=== PATIENT | female | born 1960 ===

== ENCOUNTER → 2023-08-06 15:00 | Outpatient (REF) | payer OTHER, SELFPAY | LOC: RAD 15:00 | PROVIDERS: ATTENDING PHYSICIAN Family Medicine | DX: M25.50 Pain in unspecified joint (principal); M25.531 Pain in right wrist; M25.532 Pain in left wrist; M25.561 Pain in right knee; M25.562 Pain in left knee; M25.571 Pain in right ankle and joints of right foot; M25.572 Pain in left ankle and joints of left foot; M79.642 Pain in left hand | CPT/HCPCS: 73110; 73130; 73560; 73565; 73600 ==

== ENCOUNTER 2023-12-02 07:36 | Inpatient (IN) | payer OTHER, SELFPAY ==
--- NOTE | 2023-10-30 13:12 | CM ---
Patient is scheduled for an elective L TKR on 12/02/23. Spoke with patient prior to surgery via telephone. Introduced role of Orthopedic Navigator. Patient reports that she lives alone in a one floor apartment. There are eight (two sets of four)
steps to enter. She currently functions independently. She has no DME but plans to borrow a cane and rolling walker. She has never had VN services. PCP is Eri Pavon.
Discussed orthopedic program and post surgical plans. Reviewed anticipated length of stay and that goal is for her to return home at discharge. Also reviewed outpatient PT. Patient is in agreement with tentative plan and will go directly to
outpatient PT at [facility]. She will be staying with her mother for a few days after surgery. Her mother's home is a split level with no steps to enter. She will have a first floor set up there.
Patient will complete online education.
Plan: Orthopedic Navigator will remain available to assist with the care of patient and will reassess discharge needs after surgery.
[2023-11-07 09:28] VITALS: BMI 21.3
[2023-11-07 09:55] LABS: Hematocrit 38.3 % (37.0-47.0); Hemoglobin 12.6 g/dL (12.0-16.0); Mean Corp Hgb Conc. 32.9 g/dL (33.0-37.0); Mean Corpuscular Hgb 32.2 pg (27.0-31.0); Mean Platelet Volume 9.3 fL (7.4-10.4); Platelet Count 297 10^3/uL (130-400); Red Blood Cell Count 3.91 10^6/uL (4.20-5.40); Red Cell Dist. Width 12.4 % (11.5-14.5); White Blood Cell Count 6.7 10^3/uL (4.8-10.8)
[2023-11-07 10:28] LABS: ALT (SGPT) 13 U/L (0-35); AST (SGOT) 23 U/L (14-36); Albumin 4.3 g/dl (3.5-5.0); Alkaline Phosphatase 62 U/L (38-126); Blood Urea Nitrogen 14 mg/dl (7-17); Calcium 9.8 mg/dl (8.4-10.2); Carbon Dioxide 27 mmol/L (22-30); Chloride 104 mmol/L (98-107); Estimated Creatinine Clearance 49 ml/min; Glucose 95 mg/dl (70-99); Potassium 4.4 mmol/L (3.5-5.1); Sodium 140 mmol/L (135-145); Total Bilirubin 0.3 mg/dl (0.2-1.3); Total Protein 7.1 g/dl (6.3-8.2); eGFR > 60.00
[2023-11-07 11:17] LABS: Glycohemoglobin (HgbA1c) 5.7 % (4.0-5.6)
[2023-11-28 10:41] VITALS: BMI 21.3
[2023-12-02] VITALS (15 sets, daily range): BP systolic 93–119; BP diastolic 54–69; PULSE 74; O2SAT 98
[2023-12-02] MEDS: NORMOSOL-R 1000 IV ×2 (07:45→14:22)
[2023-12-02] MEDS: TYLENOL 650 MG PO ×4 (08:01→23:15)
[2023-12-02] MEDS: CELEBREX 200 MG PO (08:02)
[2023-12-02] MEDS: SUBLIMAZE 25 MCG IV ×2 (13:20→13:54)
--- NOTE | 2023-12-02 14:11 | W.PN.UPDATE ---
Update Note
Progress Note Update
On SL Ketomine at hs--will monitor pain and address this with patient re chronic pain and who manages this OP
--- NOTE | 2023-12-02 14:18 | W.DS.TRANS ---
DC Summary - Oral And Maxillofacial Surgery Resident
-
Discharge Instructions:
Sleep Apnea Risk Low
Discharge Diagnosis/Procedures L THERESA Dorado 12/02/23
Diet As tolerated
Activity With Walker
Driving Restrictions No driving
Bathing Restrictions OK to Shower
Instructions:
Stand-Alone Forms:
Changes to Home Medications: Yes
Discharge Medications:
DC Medications w/original date entered in [facility]
cholecalciferol (vitamin D3) 25 mcg (1,000 unit) tablet (Vitamin D3) 25 mcg PO DAILY 11/27/23
clonidine HCl 0.1 mg tablet 0.1 mg PO TID 11/27/23
desvenlafaxine succinate 100 mg tablet,extended release 24 hr (Pristiq) 100 mg PO DAILY 11/27/23
ketamine 100 mg sublingual suzy 100 mg sublingual HS 11/27/23
levothyroxine 50 mcg tablet 50 mcg PO DAILY 11/27/23
magnesium 200 mg tablet 400 mg PO DAILY 11/27/23
mecobalamin (vitamin B12) 1,000 mcg chewable tablet (B12 Active) 2,000 mcg PO DAILY 11/27/23
trazodone 100 mg tablet 100 mg PO HS 11/27/23
acetaminophen 325 mg capsule (Tylenol) 650 mg (2 x 325 mg) PO QID #2 caps 12/02/23
aspirin 325 mg tablet 325 mg PO DAILY blood clot prevention #1 tab 12/02/23
celecoxib 200 mg capsule 100 mg (1/2 x 200 mg) PO BID anti-inflammatory #30 caps 12/02/23
dexamethasone 4 mg tablet 4 mg PO BID inflammation #6 tabs 12/02/23
docusate sodium 100 mg capsule (Colace) 100 mg PO BID stool softner #1 cap 12/02/23
magnesium hydroxide 400 mg/5 mL oral suspension (Milk of Magnesia) 30 ml PO HS PRN Constipation #1 mL 12/02/23
mupirocin 2 % topical ointment topical BID 12/02/23
ondansetron 4 mg disintegrating tablet 4 mg PO Q6H PRN n/v #20 tabs 12/02/23
oxycodone 5 mg tablet 5 mg PO Q6H PRN 1 tab moderate pain, 2 tabs severe pain #30 tabs 12/02/23
sennosides 8.6 mg tablet (Senokot) 17.2 mg (2 x 8.6 mg) PO BID laxative #2 tabs 12/02/23
Home Medication Changes
celecoxib 200 mg capsule 100 mg (1/2 x 200 mg) PO BID anti-inflammatory #30 caps 12/02/23�
dexamethasone 4 mg tablet 4 mg PO BID inflammation #6 tabs 12/02/23�
mupirocin 2 % topical ointment topical BID 12/02/23�
ondansetron 4 mg disintegrating tablet 4 mg PO Q6H PRN n/v #20 tabs 12/02/23�
oxycodone 5 mg tablet 5 mg PO Q6H PRN 1 tab moderate pain, 2 tabs severe pain #30 tabs 12/02/23�
Pending Results: No
[2023-12-02] MEDS: ROXICODONE 5 MG PO (14:28)
--- NOTE | 2023-12-02 15:36 | PTCARENOTE ---
Patient admitted from PACU post removal of hardware with left knee replacement.The patient is alert and oriented.She rates her pain at a 6 out of 10.Neurovascular assessment is within normal limits and ongoing.The Aquacell dressing is intact with an
alejandro wrap.There is no drainage present.The patient is in her bed with the call bynum.Her mother is with her.Physical therapy will also be seeing her shortly.
[2023-12-02] MEDS: PRISTIQ 100 MG PO (16:21)
[2023-12-02] MEDS: CATAPRES 0.1 MG PO ×2 (16:22→22:34)
[2023-12-02] MEDS: SYNTHROID 50 MCG PO (16:27)
[2023-12-02] MEDS: ASPIRIN 325 MG PO (17:40)
[2023-12-02] MEDS: ANCEF 5 IV (17:40)
[2023-12-02] MEDS: BACTROBAN 2% OINTMENT 1 APPLIC NASAL (20:50)
[2023-12-02] MEDS: COLACE 100 MG PO (20:51)
[2023-12-02] MEDS: SENOKOT 17.2 MG PO (20:51)
[2023-12-02] MEDS: DECADRON 4 MG PO (20:51)
[2023-12-02] MEDS: TORADOL 15 MG IV (20:52)
[2023-12-02] MEDS: DESYREL 100 MG PO (22:34)
[2023-12-02] MEDS: ROXICODONE 10 MG PO (22:45)
[2023-12-03] MEDS: ANCEF 5 IV (00:02)
[2023-12-03 03:29] VITALS: BP 119/62
[2023-12-03] MEDS: TYLENOL 650 MG PO ×2 (04:40→08:08)
[2023-12-03] MEDS: SYNTHROID 50 MCG PO (05:28)
[2023-12-03 07:23] VITALS: BP 122/67
[2023-12-03] MEDS: ROXICODONE 5 MG PO (08:04)
[2023-12-03] MEDS: BACTROBAN 2% OINTMENT 1 APPLIC NASAL (08:05)
[2023-12-03] MEDS: CELEBREX 200 MG PO (08:07)
[2023-12-03] MEDS: SENOKOT 17.2 MG PO (08:07)
[2023-12-03] MEDS: COLACE 100 MG PO (08:07)
[2023-12-03] MEDS: PRISTIQ 100 MG PO (08:07)
[2023-12-03] MEDS: ASPIRIN 325 MG PO (08:07)
[2023-12-03] MEDS: CATAPRES 0.1 MG PO (08:07)
[2023-12-03] MEDS: DECADRON 4 MG PO (08:07)
[2023-12-03] MEDS: TORADOL 15 MG IV (08:08)
--- NOTE | 2023-12-03 08:40 | CM ---
Addendum entered by Maura Levy 12/03/23 10:58:
Patient did well in therapy/ She has no concerns about going home and has updated her mother.
Original Note:
Reviewed chart and held rounds with PT, OT and nursing. Patient admitted as planned for elective L TKR. Met with patient at bedside. Confirmed information previously obtained for assessment. Also discussed discharge plans. The plan is for patient to
return home at discharge. She will be going to her mother's house at discharge. Patient will go directly to outpatient PT and will come to [facility]. She has an appointment scheduled for Saturday, 12/03.
Patient has a rolling walker and cane.
She will use [facility] pharmacy if additional discharge prescriptions are needed.
[2023-12-03 09:00] VITALS: BP 123/100; PULSE 98; O2SAT 97
--- NOTE | 2023-12-03 10:23 | W.PN.ORTHO ---
Today's Communication / Plan
-
d/c
Assessment
.
Distal Motor Intact: Yes
Dressing:
Clean, dry and intact.
Assessment:
Chronic pain-controlled on current regimen
Plan
.
Surgery / Date: Wilbert Matthews 12/02/23
DVT Prophylaxis: Aspirin
Activity:
Out of bed.
PT/OT
Discharge Plan: Home w/ Outpatient PT
Subjective
.
.:
Patient resting comfortably.
Vital Signs and Labs
.
Vital Signs and Labs:
Lab Results
11/07/23 09:20
11/07/23 09:20
Temp Pulse Resp BP Pulse Ox
98 F 79 17 122/67 97
12/03/23 07:23 12/03/23 07:23 12/03/23 07:23 12/03/23 07:23 12/03/23 07:23
Non-invasive Hgb result: 10.6
Physical Exam
-
HEENT: No pallor, cyanosis, or jaundice. Throat clear.
NECK: Supple. No JVD.
RESPIRATORY: Lungs clear to auscultation.
CVS: S1, S2 normal. RRR.� No murmur, rub or gallop.
ABDOMEN: Soft, non-tender. No distension. BS+/normal.
EXTREMITIES: strength equal, no calf pain with palpation
LINER INSTALLER: AOx3. No focal deficits. delivery crew worker grossly intact
[2023-12-03 10:36] VITALS: BP 101/65; PULSE 82; O2SAT 99
[2023-12-03 11:03] VITALS: BP 127/69
== END 2023-12-03 11:48 | disposition home or self-care (01) | DRG 470 ==
LOC: 2 SOUTH 07:36
PROVIDERS: ADMITTING PHYSICIAN Specialist; FAMILY PHYSICIAN Family Medicine
PROC: 0QPC04Z Removal of Internal Fixation Device from Left Lower Femur, Open Approach (ICD-10-PCS; 2023-12-02)
PROC: 0SRD0J9 Replacement of Left Knee Joint with Synthetic Substitute, Cemented, Open Approach (ICD-10-PCS; 2023-12-02)
DX: M17.12 Unilateral primary osteoarthritis, left knee (principal); A69.20 Lyme disease, unspecified; F32.A Depression, unspecified; F41.1 Generalized anxiety disorder; M79.7 Fibromyalgia; G89.29 Other chronic pain; F17.290 Nicotine dependence, other tobacco product, uncomplicated; R26.2 Difficulty in walking, not elsewhere classified; S72.92XS Unspecified fracture of left femur, sequela; V89.2XXS Person injured in unspecified motor-vehicle accident, traffic, sequela; Z79.890 Hormone replacement therapy; Z79.899 Other long term (current) drug therapy; Z85.3 Personal history of malignant neoplasm of breast; Z90.12 Acquired absence of left breast and nipple; Z82.49 Family history of ischemic heart disease and other diseases of the circulatory system
CPT/HCPCS: 36415; 73560; 80053; 83036; 85027; 86850; 86900; 86901; 87070; 93005; 97110; 97116; 97162; 97165; C1713; C1762; C1776

== ENCOUNTER 2023-12-17 11:25 | Outpatient (RCR) | payer OTHER, SELFPAY | END 2023-12-17 23:59 | disposition home or self-care (01) | LOC: RPT 11:25 | PROVIDERS: ATTENDING PHYSICIAN Specialist; FAMILY PHYSICIAN Family Medicine | DX: R26.89 Other abnormalities of gait and mobility (principal); Z96.652 Presence of left artificial knee joint; Z73.6 Limitation of activities due to disability | CPT/HCPCS: 97010; 97110; 97162 ==

== ENCOUNTER 2023-12-31 09:01 | Outpatient (RCR) | payer OTHER, SELFPAY | END 2023-12-31 23:59 | disposition home or self-care (01) | LOC: RPT 09:01 | PROVIDERS: ATTENDING PHYSICIAN Specialist; FAMILY PHYSICIAN Family Medicine | DX: Z47.1 Aftercare following joint replacement surgery (principal); Z96.652 Presence of left artificial knee joint; R26.89 Other abnormalities of gait and mobility; Z73.6 Limitation of activities due to disability | CPT/HCPCS: 97010; 97110 ==

== ENCOUNTER 2024-03-12 16:18 | Emergency (ER) | payer OTHER, SELFPAY ==
--- NOTE | 2024-03-12 16:30 | ED.GENMED ---
History of Present Illness
<Jo Ann Saeed PA-C - Last Filed: 03/14/24 07:01>
General
Chief Complaint: Chest Pain
Source: patient
Time Seen by Provider: 03/12/24 16:27
History of Present Illness
History of Present Illness:
63yoF with a history of depression, fibromyalgia, hypothyroidism, and remote history of breast/uterine cancer currently in remission presenting for evaluation of back pain. Patient reports ongoing shortness of breath for several weeks. She woke up
this morning with pain in her left neck and upper back. Pain is worse with breathing and movement. She took Tylenol earlier today without much improvement. She denies any trauma or heavy lifting. She has had pain from fibromyalgia in the past that
has felt similar but has not had a pain like this in several years. She was seen by her PCP today and was told to go to the ED for evaluation. Patient denies any chest pain, nausea, vomiting, diaphoresis, paresthesias, abdominal pain.
Phy Exam
<Jo Ann Saeed PA-C - Last Filed: 03/14/24 07:01>
General Physical Exam
General Presentation: well appearing and no apparent distress
General age: appears stated age
General Skin: warm and dry
General Habitus: normal
General Mental: alert
ENT Exam
ENT Exam: normocephalic
Cardiovascular Exam
Cardiovascular Exam: regular rate/rhythm, no murmur and normal peripheral pulses (2+ radial and DP pulses bilaterally)
Pulmonary Exam
Pulmonary Exam: lungs clear, no respiratory distress, no rales, no crackles and no rhonchi
Gastrointestinal Exam
Gastrointestinal Exam: non tender, soft and non distended
[place] Coma Scale
Eye Opening: Spontaneous
Verbal Response: Oriented
Motor Response: Obeys Commands
GCS Total Score: 15
Musculoskeletal Exam
Musculoskeletal Exam: other (+Reproducible tenderness to cervical portion of L trapezius muscle and thoracic spine. No skin changes.)
Skin Exam
Skin Exam: normal color and warm/dry
Psychiatric Exam
Psychiatric Exam: normal mood/affect
<Keegan Valadez, - Last Filed: 03/12/24 19:50>
[place] Coma Scale
GCS Total Score: 15
Scores
<Jo Ann Saeed PA-C - Last Filed: 03/14/24 07:01>
Heart Score for Chest Pain Patients
Heart Score for Chest Pain Patients: 1
Heart Score Risk: 2.5% MACE over next 6 weeks
<Keegan Valadez, DO - Last Filed: 03/12/24 19:50>
Heart Score for Chest Pain Patients
STEMI patient?: No
History: Slightly or Non-Suspicious
ECG: Normal
Age: >45 - <65 years
Risk Factors: No Risk Factors
Troponin: </= Normal Limit
Heart Score for Chest Pain Patients: 1
Heart Score Risk: 2.5% MACE over next 6 weeks
Course
<Jo Ann Saeed PA-C - Last Filed: 03/14/24 07:01>
Orders/Labs/Results
Orders:
Orders
03/12/24 16:19
Electrocardiogram (*1) Urgent
Reason for Study: Chest Pain
EKG- Treatment ONCE
03/12/24 16:41
Ketorolac [Toradol] 15 mg IV NOW STA
CR Chest - 2 Views Urgent
Comment:
Reason For Exam: Upper back pain, SOB
03/12/24 16:43
Complete Blood Count/With Diff Urgent
Comprehensive Metabolic Panel Urgent
Troponin I Urgent
03/12/24 17:10
D-Dimer Urgent
03/12/24 17:37
CT Chest Pe Study Urgent
Comment:
Reason For Exam: SOB, elevated D-dimer
Abnormal Lab Results
03/12/24 03/12/24
16:43 17:10
RBC 3.67 L 10^6/uL
(4.20-5.40)
Hgb 11.4 L g/dL
(12.0-16.0)
Hct 33.6 L %
(37.0-47.0)
MCH 31.1 H pg
(27.0-31.0)
D-Dimer 1.10 H ug/mlFEU
(0.00-0.50)
03/12/24 16:43
03/12/24 16:43
Vital Signs
Initial and Last Documented VS:
Initial Vital Signs
Temp Pulse Resp Pulse Ox
97.9 F 85 18 100
03/12/24 16:23 03/12/24 16:23 03/12/24 16:23 03/12/24 16:23
Last Documented Vital Signs
Temp Pulse Resp BP Pulse Ox
97.9 F 83 18 109/56 100
03/12/24 16:23 03/12/24 18:01 03/12/24 18:01 03/12/24 19:00 03/12/24 19:00
[place];Keegan Valadez, DO - Last Filed: 03/12/24 19:50>
Orders/Labs/Results
Orders:
Orders
03/12/24 16:19
Electrocardiogram (*1) Urgent
Reason for Study: Chest Pain
EKG- Treatment ONCE
03/12/24 16:41
Ketorolac [Toradol] 15 mg IV NOW STA
CR Chest - 2 Views Urgent
Comment:
Reason For Exam: Upper back pain, SOB
03/12/24 16:43
Complete Blood Count/With Diff Urgent
Comprehensive Metabolic Panel Urgent
Troponin I Urgent
03/12/24 17:10
D-Dimer Urgent
03/12/24 17:37
CT Chest Pe Study Urgent
Comment:
Reason For Exam: SOB, elevated D-dimer
Abnormal Lab Results
03/12/24 03/12/24
16:43 17:10
RBC 3.67 L 10^6/uL
(4.20-5.40)
Hgb 11.4 L g/dL
(12.0-16.0)
Hct 33.6 L %
(37.0-47.0)
MCH 31.1 H pg
(27.0-31.0)
D-Dimer 1.10 H ug/mlFEU
(0.00-0.50)
03/12/24 16:43
03/12/24 16:43
Vital Signs
Initial and Last Documented VS:
Initial Vital Signs
Temp Pulse Resp Pulse Ox
97.9 F 85 18 100
03/12/24 16:23 03/12/24 16:23 03/12/24 16:23 03/12/24 16:23
Last Documented Vital Signs
Temp Pulse Resp BP Pulse Ox
97.9 F 83 18 109/56 100
03/12/24 16:23 03/12/24 18:01 03/12/24 18:01 03/12/24 19:00 03/12/24 19:00
<Jo Ann Saeed PA-C - Last Filed: 03/14/24 07:01>
MDM/Problems Addressed
Differential Diagnosis Includes:
63yoF here with L sided neck and upper back pain that she woke up with this morning. Worse with breathing. Sent here by PCP. VSS. Oxygen saturation 100%. There is reproducible muscular tenderness on exam. Differential diagnosis includes but is not
limited to: musculoskeletal, pneumonia, PE, doubt ACS
Initial ED plan: Check cardiac labs, D-dimer, EKG, and CXR. IV Toradol for pain.
<Jo Ann Saeed PA-C - Last Filed: 03/14/24 07:01>
*EKG
Interpreted by ED Provider?: Yes
EKG Intrepretation Date: 03/12/24
Heart Rate: 74
Rate: normal
Rhythm: sinus
Dagmar: normal axis
Interval: normal interval
QRS Pattern: normal QRS
Ischemia: no ischemia
<Keegan Valadez, - Last Filed: 03/12/24 19:50>
*Radiology
Radiology exam reviewed: radiology read reviewed (CT chest shows possible bronchiolitis, no PE)
*Pulse Oximetry
Patient hypoxic: no
*Vat Washer Interpretation
Rate: normal
Interpretation: normal
Heart Rate: 75
Rhythm: sinus
*Critical Care Note
Total Time (30-74mins, 75-104mins- exclusive of procedures): Not Applicable
<Keegan Valadez DO - Last Filed: 03/12/24 19:50>
Patient Management
Social determinants of health affecting care: Living situation
Escalation/DeEscalation of care consider admission/obs:
admit not indicated
<Jo Ann Saeed PA-C - Last Filed: 03/14/24 07:01>
Update Note
Update Note:
EKG shows NSR without ischemic changes and troponin WNL. D-dimer elevated and CTA chest subsequently ordered. Patient signed out to Dr. Valadez pending CT results. Clinically, suspect musculoskeletal cause of pain.
ED Attending Note
<Jo Ann Saeed PA-C - Last Filed: 03/14/24 07:01>
-
Portions of this chart may have been created with voice recognition software.� Occasional wrong word or��sound alike� substitutions may have occurred due to the inherent limitations of voice recognition software.
<Keegan Valadez DO - Last Filed: 03/12/24 19:50>
ED Attending Note
Patient seen and examined by attending physician: Yes
ED Attending Note:
I have reviewed and agree with history and treatment plan by Jo Ann Saeed. My exam revealed 63-year-old female in no acute distress, ambulating without difficulty. CT chest and troponin negative. Do not suspect ACS or PE. Patient stable for
discharge.
Discharge Plan
Departure
Patient Disposition: Home (Routine Discharge)
Date of Disposition: 03/12/24
Time of Disposition: 19:48
Patient with high blood pressure during this ER visit?: No
Condition: Good
Discharge Problem:
Chest pain
Instructions: Chest Pain PCP Follow Up
Prescriptions:
No Action
clonidine HCl 0.1 mg Tablet
0.1 mg PO TID
trazodone 100 mg Tablet
100 mg PO HS
levothyroxine 50 mcg Tablet
50 mcg PO DAILY
magnesium 200 mg Tablet
400 mg PO DAILY
cholecalciferol (vitamin D3) [Vitamin D3] 25 mcg (1,000 unit) Tablet
25 mcg PO DAILY
desvenlafaxine succinate [Pristiq] 100 mg Tablet Extended Release 24 Hr
100 mg PO DAILY
mecobalamin (vitamin B12) [B12 Active] 1,000 mcg Tablet,Chewable
2,000 mcg PO DAILY
ketamine 100 mg Emilia
100 mg SUBLINGUAL HS
mupirocin 2 % Ointment
TOPICAL BID
Patient Comments:
Patient started this medication administration on 10/30/23 in the morning.
celecoxib 200 mg capsule
100 mg PO BID Qty: 30 0RF
Rx Instructions:
*take with food
*space out 2 hours from aspirin
sennosides [Senokot] 8.6 mg tablet
17.2 mg PO BID Qty: 2 0RF
aspirin 325 mg tablet
325 mg PO DAILY Qty: 1 0RF
Rx Instructions:
Take with food
magnesium hydroxide [Milk of Magnesia] 400 mg/5 mL suspension
30 ml PO HS PRN (Reason: Constipation) Qty: 1 0RF
dexamethasone 4 mg tablet
4 mg PO BID Qty: 6 0RF
Rx Instructions:
take with food
post-op use only
docusate sodium [Colace] 100 mg capsule
100 mg PO BID Qty: 1 0RF
ondansetron [ondansetron] 4 mg tablet,disintegrating
4 mg PO Q6H PRN (Reason: n/v) Qty: 20 0RF
Rx Instructions:
take 1/2h b/f pain med if recurrent nausea
allow to dissolve in mouth w/o water
acetaminophen [Tylenol] 325 mg capsule
650 mg PO QID Qty: 2 0RF
oxycodone 5 mg tablet
5 mg PO Q6H PRN (Reason: 1 tab moderate pain, 2 tabs severe pain) Qty: 30 0RF
Rx Instructions:
Ongoing therapy
Referrals:
Eri Pavon DO [Family Provider] -
Interventions
Interventions:
*Risk Screen - Suicide Last Done: 03/12/24 16:24
*General Assessment Last Done: 03/12/24 16:24
*Neglect/Abuse Screening Last Done: 03/12/24 16:24
ED- Fall Risk Assessment Last Done: 03/12/24 20:03
*ED COVID-19 Vaccine History Last Done: 03/12/24 16:24
*Nursing Disposition Last Done: 03/12/24 20:03
ED- Cardiac Assessment Last Done: 03/12/24 17:18
Discharge Date and Time
Discharge Date/Time: 03/12/24 20:04
Print Language: PUERTO RICAN
[2024-03-12 16:50] LABS: % Basophils 0.6 % (0-2); % Eosinophils 1.2 % (0-6); % Immature Granulocytes 0.4 % (0-0.5); % Monocytes 5.8 % (1.7-9.3); Absolute Eosinophils 0.1 10^3/uL (0-0.7); Absolute Lymphocytes 1.3 10^3/uL (1.2-3.4); Absolute Monocytes 0.3 10^3/uL (0.1-0.6); Absolute Neutrophils 3.5 10^3/uL (1.4-6.5); Hematocrit 33.6 % (37.0-47.0); Hemoglobin 11.4 g/dL (12.0-16.0); Mean Corp Hgb Conc. 33.9 g/dL (33.0-37.0); Mean Corpuscular Hgb 31.1 pg (27.0-31.0); Mean Corpuscular Volume 91.6 fL (81.0-99.0); Mean Platelet Volume 9.1 fL (7.4-10.4); Nucleated Red Blood Cells % 0 %; Platelet Count 293 10^3/uL (130-400); Red Blood Cell Count 3.67 10^6/uL (4.20-5.40); Red Cell Dist. Width 12.9 % (11.5-14.5); White Blood Cell Count 5.2 10^3/uL (4.8-10.8)
[2024-03-12] MEDS: TORADOL 15 MG IV (16:50)
[2024-03-12 17:00] VITALS: BP 119/76
[2024-03-12 17:09] VITALS: BP 122/77
[2024-03-12 17:17] LABS: Troponin I < 0.012 ng/ml
[2024-03-12 17:32] LABS: ALT (SGPT) 13 U/L (0-35); AST (SGOT) 23 U/L (14-36); Albumin 4.1 g/dl (3.5-5.0); Alkaline Phosphatase 73 U/L (38-126); Blood Urea Nitrogen 17 mg/dl (7-17); Calcium 9.6 mg/dl (8.4-10.2); Carbon Dioxide 28 mmol/L (22-30); Chloride 103 mmol/L (98-107); Glucose 87 mg/dl (70-99); Potassium 4.2 mmol/L (3.5-5.1); Sodium 142 mmol/L (135-145); Total Bilirubin 0.2 mg/dl (0.2-1.3); Total Protein 6.7 g/dl (6.3-8.2); eGFR > 60.00
[2024-03-12 17:52] VITALS: BP 129/73
[2024-03-12 18:00] VITALS: BP 114/103
[2024-03-12 18:36] VITALS: BP 97/70
[2024-03-12 19:00] VITALS: BP 109/56
== END 2024-03-12 20:04 | disposition home or self-care (01) ==
LOC: EMR 16:18
PROVIDERS: Physician Assistant; EMERGENCY PHYSICIAN Emergency Medicine; FAMILY PHYSICIAN Family Medicine
DX: R07.89 Other chest pain (principal); F32.A Depression, unspecified; M79.7 Fibromyalgia; E03.9 Hypothyroidism, unspecified; Z85.42 Personal history of malignant neoplasm of other parts of uterus
CPT/HCPCS: 99284; 96374; 71046; 71275; 80053; 84484; 85025; 85379; 93005; Q9967

== ENCOUNTER 2024-03-31 14:38 | Emergency (ER) | payer OTHER, SELFPAY ==
[2024-03-31 14:40] VITALS: BP 130/85
--- NOTE | 2024-03-31 15:22 | EDRN ---
Patient stated 'I want to leave. I can't sit here for hours. I can't breathe because of the pain. I will stay only if I can go lay down back there now. How long is it going to be to I can get back to a room?' Explained to patient that this RN could
not guarantee how much longer she would have to wait but would see what can be done. Patient stated 'I am just going to leave.' Patient walking around in the waiting room with steady gait. Instructed patient to return if her symptoms worsen.
== END 2024-03-31 15:30 | disposition left against medical advice (07) ==
LOC: EMR 14:38
PROVIDERS: EMERGENCY PHYSICIAN Student in an Organized Health Care Education/Training Program
DX: M54.9 Dorsalgia, unspecified (principal); R06.00 Dyspnea, unspecified; Z53.21 Procedure and treatment not carried out due to patient leaving prior to being seen by health care provider
CPT/HCPCS: 93005; 99283

== ENCOUNTER → 2024-05-07 06:51 | Outpatient (REF) | payer OTHER, SELFPAY | LOC: MRI 06:51 | PROVIDERS: ATTENDING PHYSICIAN Nurse Practitioner Primary Care | DX: M54.6 Pain in thoracic spine (principal); M54.14 Radiculopathy, thoracic region; R63.4 Abnormal weight loss; F17.290 Nicotine dependence, other tobacco product, uncomplicated; Z85.3 Personal history of malignant neoplasm of breast | CPT/HCPCS: 72146 ==